=== PATIENT | female | born 1995 | race Hispanic/Latino ===

== ENCOUNTER 2018-09-28 21:00 | Emergency (ER) | payer MEDICAID | END 2018-09-28 22:16 | disposition home or self-care (01) | LOC: EDH 21:00 | DX: R43.8 Other disturbances of smell and taste (principal) | CPT/HCPCS: 99281 ==

== ENCOUNTER 2018-11-03 15:01 | Observation (INO) | payer MEDICAID ==
[2018-11-03 16:22] LABS: APPEARANCE,URINE Clear (CLEAR); BILIRUBIN,URINE Negative (NEGATIVE); COLOR,URINE Yellow (YELLOW); GLUCOSE, URINE (UA) Negative (NEGATIVE); KETONES,URINE 15 mg/dL (NEGATIVE); LEUKOCYTE ESTERASE ,URINE Large (NEGATIVE); NITRATE,URINE Negative (NEGATIVE); OCCULT BLOOD,URINE Negative (NEGATIVE); PROTEIN,URINE Negative (NEGATIVE); UROBILINOGEN,URINE 0.2 mg/dL (0.2-1.0)
[2018-11-03 16:39] LABS: BACTERIA,URINE None Seen /HPF (None Seen); RBC,URINE None Seen /HPF (0-1)
== END 2018-11-03 17:00 | disposition home or self-care (01) ==
LOC: LDH 15:01
PROVIDERS: ADMIT Obstetrics & Gynecology; ATTEND Obstetrics & Gynecology
DX: O26.893 Other specified pregnancy related conditions, third trimester (principal); M54.5 Low back pain; Z3A.38 38 weeks gestation of pregnancy
CPT/HCPCS: 81001; G0378 ×3

== ENCOUNTER 2021-12-04 18:53 | Emergency (ER) | payer MEDICAID ==
[~2021-12-04] VITALS: Ht 121.9 cm; Wt 113.4 kg
[~2021-12-04 18:53] MED LIST: IBUP-2077 PO; PREN-196 PO
[2021-12-04 18:55] VITALS: BP 95/68
[2021-12-04] MEDS ORDERED: DICYCLOMINE HCL 10 MG/5 ML ML PO SCH (21:00)
[2021-12-04] MEDS ORDERED: FAMOTIDINE 20MG VIAL IV SCH (21:00)
[2021-12-04] MEDS ORDERED: MAG/ALUM/SIMETH 30 ML UDCUP PO SCH (21:00)
[2021-12-04] MEDS ORDERED: ONDANSETRON 4MG TABLET PO SCH (21:00)
[2021-12-04 21:34] LABS: BASOPHILS % (AUTO) 0.4 % (0.0-5.0); EOSINOPHILS % (AUTO) 6.4 % (0.0-8.0); HEMATOCRIT 34.7 % (36-48); MEAN CORPUSCULAR HEMOGLOBIN 23.3 pg (27.0-33.0); MEAN CORPUSCULAR HGB CONC 29.7 g/dL (32.0-36.0); MEAN CORPUSCULAR VOLUME 78.3 fL (79-99); MONOCYTES % (AUTO) 4.4 % (3.0-13.0); NEUTROPHILS % (AUTO) 52.6 % (40.0-77.0); PLATELET COUNT (AUTO) 374 K/uL (130-400); RED BLOOD CELL COUNT(AUTO) 4.43 MIL/uL (4.00-5.50); RED CELL DISTRIBUTION WIDTH 17.1 % (11.0-15.5)
[2021-12-04 21:39] LABS: APPEARANCE,URINE Cloudy (CLEAR); BILIRUBIN,URINE Small (NEGATIVE); COLOR,URINE Dark Yellow (YELLOW); GLUCOSE, URINE (UA) Negative (NEGATIVE); KETONES,URINE Trace mg/dL (NEGATIVE); LEUKOCYTE ESTERASE ,URINE Trace (NEGATIVE); NITRATE,URINE Negative (NEGATIVE); OCCULT BLOOD,URINE Negative (NEGATIVE); PROTEIN,URINE Trace mg/dL (NEGATIVE)
[2021-12-04 21:43] LABS: HCG,QUAL RESULT NEGATIVE (NEGATIVE)
[2021-12-04 21:46] LABS: BACTERIA,URINE Few /HPF (None Seen); RBC,URINE 0-1 /HPF (0-1)
[2021-12-04 21:47] LABS: MUCUS,URINE Few LPF (None Seen); SQUAMOUS EPITHELIAL CELL,UR Moderate /HPF (0-2)
[2021-12-04 21:54] LABS: CREATININE 0.5 mg/dL (0.5-1.5); POTASSIUM 5.9 mmol/L (3.5-5.1)
[2021-12-04 22:04] LABS: ALBUMIN 3.5 g/dL (3.5-5.0); BILIRUBIN,TOTAL 0.9 mg/dL (0.2-1.0); TOTAL PROTEIN, SERUM 8.5 g/dL (6.0-8.3)
[2021-12-04] MEDS ORDERED: KAYEXALATE 15GM/60ML PO ONE (22:30)
== END 2021-12-04 22:36 | disposition home or self-care (01) ==
LOC: EDH 18:53
DX: K21.9 Gastro-esophageal reflux disease without esophagitis (principal); E87.5 Hyperkalemia; D64.9 Anemia, unspecified; R94.5 Abnormal results of liver function studies; E66.9 Obesity, unspecified; Z79.1 Long term (current) use of non-steroidal anti-inflammatories (NSAID); Z68.45 Body mass index [BMI] 70 or greater, adult
CPT/HCPCS: 36415; 71045; 80053; 81001; 81025; 84484; 85025; 96374; 99284; S0028; J3490